=== PATIENT | female | born 1955 | race Caucasian/White ===

== ENCOUNTER → 2018-01-09 11:21 | Outpatient (CLI) | payer OTHER, SELFPAY ==
--- NOTE | 2018-01-09 | DI.MG.S_ITS ---
BILATERAL DIGITAL SCREENING MAMMOGRAM 3D/2D WITH CAD: 01/09/2018 CLINICAL: Routine screening. Comparison is made to exams dated: 10/26/2016 mammogram, 09/22/2015 mammogram, and 08/18/2014 mammogram - [facility]. The tissue of both breasts is heterogeneously dense. This may lower the sensitivity of mammography. Current study was also evaluated with a Computer Aided Detection (CAD) system. There is a biopsy clip in the right breast. There also are post operative findings in the left breast. No significant masses, calcifications, or other findings are seen in either breast. There has been no significant interval change. IMPRESSION: NEGATIVE There is no mammographic evidence of malignancy. A 1 year screening mammogram is recommended. This exam was interpreted at Station ID: [id number]. NOTE: For mammograms, a report in lay terms will be sent to the patient. Approximately 15% of breast malignancies will not be visualized mammographically. In the management of a palpable breast mass, a negative mammogram must not discourage biopsy of a clinically suspicious lesion. Electronically Signed By: Jennifer damian/george:01/09/2018 16:09:23 letter sent: Normal Exam ACR BI-RADS Category 1: Negative [id number]
== END ==
PROVIDERS: PCP Internal Medicine; Visit Provider Internal Medicine
DX: Z12.31 Encounter for screening mammogram for malignant neoplasm of breast (principal)
CPT/HCPCS: 77063; 77067

== ENCOUNTER → 2018-04-11 09:06 | Outpatient (CLI) | payer OTHER, SELFPAY ==
[2018-04-11 10:41] LABS: BUN Creatinine Ratio 28.3 (6-22); Blood Urea Nitrogen 17 mg/dL (7-17); Calcium 9.1 mg/dL (8.4-10.2); Carbon Dioxide 27 mmol/L (22-32); Chloride 103 mmol/L (98-107); Cholesterol 257 mg/dL (140-199); Estimated Glomerular Filt Rate > 60.0 mL/min (>60); Glucose 86 mg/dL (80-110); HDL Cholesterol 56 mg/dL (40-60); HEMOLYSIS 15 (0-50); LDL Cholesterol Calculated 190 mg/dL (<100); Potassium 4.1 mmol/L (3.4-5.1); Sodium 140 mmol/L (137-145); Triglycerides 57 mg/dL (35-150)
[2018-04-11 11:11] LABS: TSH w/ Reflex to FT4 1.62 uIU/mL (0.47-4.68)
== END ==
PROVIDERS: PCP Internal Medicine; Visit Provider Internal Medicine
DX: I10 Essential (primary) hypertension (principal); E78.00 Pure hypercholesterolemia, unspecified; R00.2 Palpitations
CPT/HCPCS: 36415; 80048; 80061; 84443

== ENCOUNTER 2018-04-11 12:20 | Emergency (ER) | payer OTHER, SELFPAY ==
[2018-04-11] VITALS (9 sets, daily range): BP systolic 137–174; BP diastolic 68–88; PULSE 70–95; RESP 11–19; TEMP 36.9–37.2; O2SAT 97–100
--- NOTE | 2018-04-11 12:38 | ED_ITS ---
HPI - Anxiety <TASIA Arshad - Last Filed: 04/11/18 22:07> General Chief Complaint: Syncope Stated Complaint: Anxiety Time Seen by Provider: 04/11/18 12:37 Source: patient Mode of arrival: EMS Limitations: no limitations History of Present Illness HPI narrative: 62-year-old female with history of hypertension and is a nonsmoker here for complaint of having dizziness and feeling of shortness of breath with heart pounding prior to arrival. She states she felt lightheaded during this episode. She also reported having tingling to bilateral hands during this period. She denies having any history of panic attacks or anxiety attacks. She denies having any chest pain. She denies having any headaches. No fevers no chills. Positive p.o. intake. She states her symptoms have resolved since this initial episode that lasted for approximately 10 and 15 min. She was seen by her primary care provider for concerned that she was having a regular heart rhythm. She is currently waiting Holter monitor. To ensure no arrhythmias. MD complaint: heart racing and shortness of breath Related Data Home Medications Medication Instructions Recorded Confirmed telmisartan [Micardis] 40 mg PO QPM #0 04/18/16 04/11/18 albuterol sulfate [Ventolin HFA] 1 puff INHALATION PRN PRN 04/11/18 04/11/18 beclomethasone dipropionate [Qvar 1 puff INHALATION BID 04/11/18 04/11/18 RediHaler] Previous Rx's Medication Instructions Recorded lorazepam 0.5 mg PO BID-TID PRN #10 tab 04/11/18 Allergies Allergy/AdvReac Type Severity Reaction Status Date / Time aspirin [ASPIRIN] Allergy Severe TROUBLE Unverified 04/11/18 15:36 BREATHING Review of Systems <TASIA Arshad - Last Filed: 04/11/18 22:07> Constitutional Reports as per HPI and Denies fatigue Eyes Denies change in vision, Denies eye discharge, Denies irritation and Denies loss of vision ENT Ears, Nose, Mouth, and Throat: Denies change in voice, Denies neck pain and Denies sore throat Cardiovascular Denies dyspnea and Denies dyspnea on exertion Comments: Feels like heart was racing or is missing beats Respiratory Denies cough, Denies dyspnea, Denies dyspnea on exertion and Denies wheezing Gastrointestinal Gastrointestinal: Denies abdominal pain, Denies change in bowel habits, Denies diarrhea, Denies nausea and Denies vomiting Genitourinary Denies hematuria, Denies flank pain, Denies urinary incontinence and Denies urinary urgency Musculoskeletal Denies neck pain Integumentary/Breasts Denies pruritus, Denies erythema, Denies rash and Denies wounds Neurologic Denies confusion and Denies loss of vision Psychiatric Denies anxiety, Denies confusion, Denies depression, Denies homicidal ideation and Denies suicidal ideation Endocrine Denies fatigue and Denies flushing Allergic/Immunologic Denies wheezing Exam <TASIA Arshad - Last Filed: 04/11/18 22:07> Initial Vital Signs Initial Vital Signs: Vital Signs Temperature 98.5 F 04/11/18 12:35 Pulse Rate 95 H 04/11/18 12:35 Respiratory Rate 19 04/11/18 12:35 Blood Pressure 137/68 04/11/18 12:35 Pulse Oximetry 98 04/11/18 12:35 Const General: cooperative and well developed Nutritional Appearance: well nourished Orientation: alert, awake, oriented x3 and not confused HENFL Mouth: oral mucosae normal and moist mucous membranes Eyes Conjunctivae: conjunctivae normal Sclera: sclerae normal Pupils: PERRL EOM: EOM intact bilaterally Resp Effort & Inspection: normal respiratory effort, able to speak in complete sentences, no respiratory distress and no use of accessory muscles Auscultation: clear to auscultation bilaterally, no rales, no rhonchi and no wheezes Cardio Rate: regular rate Rhythm: regular rhythm Heart Sounds: no click, no gallops, no murmurs and no rubs GI Inspection: non-distended Palpation: soft, no hepatosplenomegaly, No guarding, No pulsatile mass and No tender Auscultation: normal bowel sounds General: No CVA tenderness Skin General: no rashes or lesions noted, No jaundice and No petechiae Neuro General: alert, oriented x3, gait normal and no focal motor deficits Speech: speech normal <Leora Kemp DO - Last Filed: 04/12/18 07:34> Initial Vital Signs Initial Vital Signs: Vital Signs Temperature 98.5 F 04/11/18 12:35 Pulse Rate 95 H 04/11/18 12:35 Respiratory Rate 19 04/11/18 12:35 Blood Pressure 137/68 04/11/18 12:35 Pulse Oximetry 98 04/11/18 12:35 Course <TASIA Arshad - Last Filed: 04/11/18 22:07> Orders Ordered: Discontinued Medications Sodium Chloride (Normal Saline 0.9%) 1,000 mls @ 150 mls/hr IV CONT ALISON Last Infusion: 04/11/18 15:37 Dose: 0 mls/hr Admin: 04/11/18 14:28 Dose: 150 mls/hr Lorazepam (Ativan) 0.5 mg IV NOW ONE Stop: 04/11/18 13:54 Last Admin: 04/11/18 14:27 Dose: 0.5 mg Vital Signs - 8 hr 04/11/18 14:30 04/11/18 15:17 04/11/18 15:30 Pulse Rate 79 83 76 Respiratory Rate 12 12 13 Blood Pressure [Right Arm] 147/74 H 141/75 H 143/81 H Pulse Oximetry 97 100 99 04/11/18 16:00 Pulse Rate 73 Respiratory Rate 12 Blood Pressure [Right Arm] 143/81 H Pulse Oximetry 99 <Leora Kemp DO - Last Filed: 04/12/18 07:34> Orders Ordered: Discontinued Medications Sodium Chloride (Normal Saline 0.9%) 1,000 mls @ 150 mls/hr IV CONT ALISON Last Infusion: 04/11/18 15:37 Dose: 0 mls/hr Admin: 04/11/18 14:28 Dose: 150 mls/hr Lorazepam (Ativan) 0.5 mg IV NOW ONE Stop: 04/11/18 13:54 Last Admin: 04/11/18 14:27 Dose: 0.5 mg Vital Signs - 8 hr 04/11/18 14:30 04/11/18 15:17 04/11/18 15:30 Pulse Rate 79 83 76 Respiratory Rate 12 12 13 Blood Pressure [Right Arm] 147/74 H 141/75 H 143/81 H Pulse Oximetry 97 100 99 04/11/18 16:00 Pulse Rate 73 Respiratory Rate 12 Blood Pressure [Right Arm] 143/81 H Pulse Oximetry 99 MDM - Anxiety <TASIA Arshad - Last Filed: 04/11/18 22:07> Lab Data Result diagrams: 04/11/18 12:50 04/11/18 12:50 Lab Results 04/11/18 04/11/18 04/11/18 Range/Units 12:50 12:50 15:11 WBC 7.3 (4.5-11.0) X10^3/uL RBC 4.41 (4.0-5.2) X10^6/uL Hgb 14.1 (12.0-16.0) g/dL Hct 40.8 (36-46) % MCV 92.5 (80-100) fL MCH 31.9 (26-34) PG MCHC 34.5 (30-36) % RDW 13.0 (11.6-14.8) % Plt Count 307 (150-400) X10^3/uL Neut % (Auto) 62.3 (50-75) % Lymph % (Auto) 26.5 (25-40) % [place] % (Auto) 8.7 (3-14) % Eos % (Auto) 2.0 (2-4) % Baso % (Auto) 0.5 (0-2) % Neut # (Auto) 4600 (2621-4271) /uL Sodium 139 (137-145) mmol/L Potassium 3.5 (3.4-5.1) mmol/L Chloride 104 (98-107) mmol/L Carbon Dioxide 23 (22-32) mmol/L BUN 19 H (7-17) mg/dL Creatinine 0.60 (0.52-1.04) mg/dL Estimated GFR > 60.0 (>60) mL/min BUN/Creatinine Ratio 31.7 H (6-22) Glucose 112 H (80-110) mg/dL Calcium 9.8 (8.4-10.2) mg/dL Total Bilirubin 1.0 (0.2-1.3) mg/dL AST 29 (14-36) IU/L ALT 27 (9-52) IU/L Alkaline Phosphatase 68 (38-126) U/L Total Creatine Kinase 73 (30-135) U/L CK-MB (CK-2) TNP CK-MB (CK-2) Rel Index TNP Troponin I < 0.012 (0.01-0.034) ng/mL Total Protein 7.2 (6.3-8.2) g/dL Albumin 4.5 (3.5-5.0) g/dL Globulin 2.7 (1.7-4.1) g/dL Albumin/Globulin Ratio 1.7 (1.0-2.8) Lipase 89 (23-300) U/L Urine RBC None seen (0-5/HPF) Urine WBC None seen (0-5/HPF) Urine Bacteria None seen (None) Ur Culture Indicated? Cult not indicated Micro UA Comment Microscopic normal 04/11/18 Range/Units 15:51 WBC (4.5-11.0) X10^3/uL RBC (4.0-5.2) X10^6/uL Hgb (12.0-16.0) g/dL Hct (36-46) % MCV (80-100) fL MCH (26-34) PG MCHC (30-36) % RDW (11.6-14.8) % Plt Count (150-400) X10^3/uL Neut % (Auto) (50-75) % Lymph % (Auto) (25-40) % [place] % (Auto) (3-14) % Eos % (Auto) (2-4) % Baso % (Auto) (0-2) % Neut # (Auto) (7317-5864) /uL Sodium (137-145) mmol/L Potassium (3.4-5.1) mmol/L Chloride (98-107) mmol/L Carbon Dioxide (22-32) mmol/L BUN (7-17) mg/dL Creatinine (0.52-1.04) mg/dL Estimated GFR (>60) mL/min BUN/Creatinine Ratio (6-22) Glucose (80-110) mg/dL Calcium (8.4-10.2) mg/dL Total Bilirubin (0.2-1.3) mg/dL AST (14-36) IU/L ALT (9-52) IU/L Alkaline Phosphatase (38-126) U/L Total Creatine Kinase (30-135) U/L CK-MB (CK-2) CK-MB (CK-2) Rel Index Troponin I < 0.012 (0.01-0.034) ng/mL Total Protein (6.3-8.2) g/dL Albumin (3.5-5.0) g/dL Globulin (1.7-4.1) g/dL Albumin/Globulin Ratio (1.0-2.8) Lipase (23-300) U/L Urine RBC (0-5/HPF) Urine WBC (0-5/HPF) Urine Bacteria (None) Ur Culture Indicated? Micro UA Comment Urine Dip Bedside Urine Glucose Negative Bedside Urine Bilirubin - Negative Bedside Urine Ketone ++ 40 Urine Specific [place] 1.010 Bedside Urine Occult Blood - Negative Bedside Urine pH 6.0 Bedside Urine Protein - Negative Bedside Urine Urobilinogen - Negative Bedside Urine Nitrite - Negative Bedside Urine Leukocytes - Negative Esterase Imaging Data CT scan - head: Radiologist's impression: [address] [address] [address] Scan Report Signed Patient: Elizabeth Altamirano VMR#: [id number] : 8Acct:[id number] Age/Sex: 62 / FDate of Service: 04/11/18 Loc: ED Accession Number: [id number] Procedure: CT head/brain wo con Ordering Provider: Jose Scott PROCEDURE: CT HEAD/BRAIN WO CON INDICATIONS: Pre syncopal episode TECHNIQUE: Noncontrast 4.5 mm thick angled axial sections acquired from the foramen magnum to the vertex, with coronal and sagittal reformats. For radiation dose reduction, the following was used: automated exposure control, adjustment of mA and/or kV according to patient size. COMPARISON: [facility], , BRAIN WITHOUT CONTRAST, 12/09/2014, 8:49. FINDINGS: Image quality: Diagnostic. CSF spaces: Basal cisterns are patent. No extra-axial fluid collections. Ventricles are normal in size and shape. Brain: No midline shift. No intracranial masses or hemorrhage. Mendez-white matter interface is normal. Skull and face: Calvarium and visualized facial bones are intact, without suspicious lesions. Sinuses: Complete opacification of the ethmoid air cells and the frontal sinuses is present. There is prominent thinning of the bone along the cranial margin of the ethmoid air cells without rodríguez dehiscence evident. IMPRESSION: 1. No acute intracranial hemorrhage. 2. Prominent paranasal sinus disease. Bony thinning of the superior aspect of the ethmoid air cells is present without definitive dehiscence. If there is clinical concern for sinusitis extending into the cranial vault, please consider a dedicated sinus CT for better evaluation of the bone. Dictated by: Blake Castellon M.D. on 04/11/2018 at 13:19 Approved by: Blake Castellon M.D. on 04/11/2018 at 13:22 Chest x-ray: My impression: [address] [address] XRay Report Signed Patient: Elizabeth Altamirano R#: [id number] : 8Acct:[id number] Age/Sex: 62 / FDate of Service: 04/11/18 Loc: ED Accession Number: [id number] Procedure: XR chest 1V Ordering Provider: Jose Scott PROCEDURE: XR CHEST 1V INDICATIONS: Pre syncopal episode shortness of breath TECHNIQUE: One view of the chest was acquired. COMPARISON: None. FINDINGS: Surgical changes and devices: None. Lungs and pleura: No pleural effusions or pneumothorax. Lungs are clear. Mediastinum: Mediastinal contours appear normal. Heart size is normal. Bones and chest wall: No suspicious bony lesions. Overlying soft tissues appear unremarkable. IMPRESSION: Negative chest. No acute cardiopulmonary process is evident. Dictated by: Blake Castellon M.D. on 04/11/2018 at 13:22 Approved by: Blake Castellon M.D. on 04/11/2018 at 13:27 ECG Data Interpretation: EKG shows sinus rhythm with no ST elevation or depression. No ectopy. Ventricular rate is 74. Pr interval 148. QRS duration of 116. QTC is 387. MDM Narrative Medical decision making narrative: EKG was obtained was negative for any ST elevation or depression. No ectopy. No ectopic beats or ectopy is seen while on monitoring while she was in the emergency room. CBC and and Chem panel were obtained were unremarkable. Two sets of cardiac enzymes were obtained were negative. Chest x-ray was negative for any acute findings. CT of the head was also obtained and was also negative for any acute findings. Symptoms and presentation present as anxiety. She was given half a mg of Ativan while in the emergency room which relax the patient and made her feel better. Recommend that she continue with Holter monitoring as scheduled to rule out arrhythmias. Follow up with primary care provider later this week for re-evaluation. Small amount of Ativan as prescribed to help with any panic attacks. Patient is encouraged to use relaxation techniques such as breathing exercises to help with any anxiety. For any worsening symptoms return to the emergency room. <Leora Kemp, DO - Last Filed: 04/12/18 07:34> Lab Data Lab Results 04/11/18 04/11/18 04/11/18 Range/Units 12:50 12:50 15:11 WBC 7.3 (4.5-11.0) X10^3/uL RBC 4.41 (4.0-5.2) X10^6/uL Hgb 14.1 (12.0-16.0) g/dL Hct 40.8 (36-46) % MCV 92.5 (80-100) fL MCH 31.9 (26-34) PG MCHC 34.5 (30-36) % RDW 13.0 (11.6-14.8) % Plt Count 307 (150-400) X10^3/uL Neut % (Auto) 62.3 (50-75) % Lymph % (Auto) 26.5 (25-40) % [place] % (Auto) 8.7 (3-14) % Eos % (Auto) 2.0 (2-4) % Baso % (Auto) 0.5 (0-2) % Neut # (Auto) 4600 (6137-3351) /uL Sodium 139 (137-145) mmol/L Potassium 3.5 (3.4-5.1) mmol/L Chloride 104 (98-107) mmol/L Carbon Dioxide 23 (22-32) mmol/L BUN 19 H (7-17) mg/dL Creatinine 0.60 (0.52-1.04) mg/dL Estimated GFR > 60.0 (>60) mL/min BUN/Creatinine Ratio 31.7 H (6-22) Glucose 112 H (80-110) mg/dL Calcium 9.8 (8.4-10.2) mg/dL Total Bilirubin 1.0 (0.2-1.3) mg/dL AST 29 (14-36) IU/L ALT 27 (9-52) IU/L Alkaline Phosphatase 68 (38-126) U/L Total Creatine Kinase 73 (30-135) U/L CK-MB (CK-2) TNP CK-MB (CK-2) Rel Index TNP Troponin I < 0.012 (0.01-0.034) ng/mL Total Protein 7.2 (6.3-8.2) g/dL Albumin 4.5 (3.5-5.0) g/dL Globulin 2.7 (1.7-4.1) g/dL Albumin/Globulin Ratio 1.7 (1.0-2.8) Lipase 89 (23-300) U/L Urine RBC None seen (0-5/HPF) Urine WBC None seen (0-5/HPF) Urine Bacteria None seen (None) Ur Culture Indicated? Cult not indicated Micro UA Comment Microscopic normal 04/11/18 Range/Units 15:51 WBC (4.5-11.0) X10^3/uL RBC (4.0-5.2) X10^6/uL Hgb (12.0-16.0) g/dL Hct (36-46) % MCV (80-100) fL MCH (26-34) PG MCHC (30-36) % RDW (11.6-14.8) % Plt Count (150-400) X10^3/uL Neut % (Auto) (50-75) % Lymph % (Auto) (25-40) % [place] % (Auto) (3-14) % Eos % (Auto) (2-4) % Baso % (Auto) (0-2) % Neut # (Auto) (4015-4037) /uL Sodium (137-145) mmol/L Potassium (3.4-5.1) mmol/L Chloride (98-107) mmol/L Carbon Dioxide (22-32) mmol/L BUN (7-17) mg/dL Creatinine (0.52-1.04) mg/dL Estimated GFR (>60) mL/min BUN/Creatinine Ratio (6-22) Glucose (80-110) mg/dL Calcium (8.4-10.2) mg/dL Total Bilirubin (0.2-1.3) mg/dL AST (14-36) IU/L ALT (9-52) IU/L Alkaline Phosphatase (38-126) U/L Total Creatine Kinase (30-135) U/L CK-MB (CK-2) CK-MB (CK-2) Rel Index Troponin I < 0.012 (0.01-0.034) ng/mL Total Protein (6.3-8.2) g/dL Albumin (3.5-5.0) g/dL Globulin (1.7-4.1) g/dL Albumin/Globulin Ratio (1.0-2.8) Lipase (23-300) U/L Urine RBC (0-5/HPF) Urine WBC (0-5/HPF) Urine Bacteria (None) Ur Culture Indicated? Micro UA Comment Urine Dip Bedside Urine Glucose Negative Bedside Urine Bilirubin - Negative Bedside Urine Ketone ++ 40 Urine Specific [place] 1.010 Bedside Urine Occult Blood - Negative Bedside Urine pH 6.0 Bedside Urine Protein - Negative Bedside Urine Urobilinogen - Negative Bedside Urine Nitrite - Negative Bedside Urine Leukocytes - Negative Esterase ECG Data Attestation: I personally reviewed and interpreted this ECG as follows: Prior ECG tracings: available for review Interpretation: Normal sinus rhythm rate [address] changes no T-wave inversion Discharge Plan Departure Patient Disposition: Home Clinical Impression: Anxiety Discharge Date/Time: 04/11/18 17:36 Interventions: ED Discharge Assessment Last Done: 04/11/18 17:35 Instructions: DI for Anxiety -- Adult Activity Restrictions/Additional Instructions: Imaging today and laboratory results were unremarkable. EKG was unremarkable. No signs of irregular heartbeat or missed heart these are seen on EKG or rhythm strip today. Signs and symptoms presents as anxiety. Small amount of Ativan as prescribed for any anxiety attacks use as directed. No driving while on the Ativan. Follow up with your primary care provider next week for re-evaluation. Continue with a Holter monitor as already scheduled for further evaluation of a heart rate and rhythm. For any worsening symptoms return to the emergency room. Recommend relaxation techniques when feeling excision such as deep breathing exercises. Prescriptions: New lorazepam 0.5 mg tablet 0.5 mg PO BID-TID PRN (Reason: anxiety) Qty: 10 RF: 0 No Action telmisartan [Micardis] 40 MG tablet 40 mg PO QPM Qty: 0 RF: 0 albuterol sulfate [Ventolin HFA] 90 mcg/actuation Hfa Aerosol Inhaler 1 puff Inhalation PRN PRN (Reason: Shortness Of Breath) RF: 0 beclomethasone dipropionate [Qvar RediHaler] 80 mcg/actuation Hfa Aerosol Breath Activated 1 puff Inhalation BID RF: 0 Referrals: Norah Amato MD [Primary Care Provider] - <Leora Kemp DO - Last Filed: 04/12/18 07:34> Cosign ED Attending Cosignature Attestation: I was immediately available in the department for consultation. Documentation has been reviewed. I agree with assessment and plan.
--- NOTE | 2018-04-11 13:53 | DI.CT.S_ITS ---
PROCEDURE: CT HEAD/BRAIN WO CON INDICATIONS: Pre syncopal episode TECHNIQUE: Noncontrast 4.5 mm thick angled axial sections acquired from the foramen magnum to the vertex, with coronal and sagittal reformats. For radiation dose reduction, the following was used: automated exposure control, adjustment of mA and/or kV according to patient size. COMPARISON: [facility], MR, BRAIN WITHOUT CONTRAST, 12/09/2014, 8:49. FINDINGS: Image quality: Diagnostic. CSF spaces: Basal cisterns are patent. No extra-axial fluid collections. Ventricles are normal in size and shape. Brain: No midline shift. No intracranial masses or hemorrhage. Mendez-white matter interface is normal. Skull and face: Calvarium and visualized facial bones are intact, without suspicious lesions. Sinuses: Complete opacification of the ethmoid air cells and the frontal sinuses is present. There is prominent thinning of the bone along the cranial margin of the ethmoid air cells without rodríguez dehiscence evident. IMPRESSION: 1. No acute intracranial hemorrhage. 2. Prominent paranasal sinus disease. Bony thinning of the superior aspect of the ethmoid air cells is present without definitive dehiscence. If there is clinical concern for sinusitis extending into the cranial vault, please consider a dedicated sinus CT for better evaluation of the bone. Dictated by: Blake Castellon M.D. on 04/11/2018 at 13:19 Approved by: Blake Castellon M.D. on 04/11/2018 at 13:22
--- NOTE | 2018-04-11 13:53 | DI.RAD.S_ITS ---
PROCEDURE: XR CHEST 1V INDICATIONS: Pre syncopal episode shortness of breath TECHNIQUE: One view of the chest was acquired. COMPARISON: None. FINDINGS: Surgical changes and devices: None. Lungs and pleura: No pleural effusions or pneumothorax. Lungs are clear. Mediastinum: Mediastinal contours appear normal. Heart size is normal. Bones and chest wall: No suspicious bony lesions. Overlying soft tissues appear unremarkable. IMPRESSION: Negative chest. No acute cardiopulmonary process is evident. Dictated by: Blake Castellon M.D. on 04/11/2018 at 13:22 Approved by: Blake Castellon M.D. on 04/11/2018 at 13:27
[2018-04-11 14:05] LABS: Add Manual Diff / Slide Review NO; Basophils Percent Auto 0.5 % (0-2); Hematocrit 40.8 % (36-46); Hemoglobin 14.1 g/dL (12.0-16.0); Lymphocytes Percent Auto 26.5 % (25-40); Mean Corpuscular HGB Conc 34.5 % (30-36); Mean Corpuscular Hemoglobin 31.9 PG (26-34); Mean Corpuscular Volume 92.5 fL (80-100); Monocytes Percent Auto 8.7 % (3-14); Neutrophils Absolute Auto 4600 /uL (3000-5900); Neutrophils Percent Auto 62.3 % (50-75); Platelet Count 307 X10^3/uL (150-400); Red Blood Cell Count 4.41 X10^6/uL (4.0-5.2); White Blood Cell Count 7.3 X10^3/uL (4.5-11.0)
[2018-04-11 14:10] LABS: Alanine Aminotransferase 27 IU/L (9-52); Albumin 4.5 g/dL (3.5-5.0); Albumin Globulin Ratio 1.7 (1.0-2.8); Alkaline Phosphatase 68 U/L (38-126); Aspartate Aminotransferase 29 IU/L (14-36); BUN Creatinine Ratio 31.7 (6-22); Blood Urea Nitrogen 19 mg/dL (7-17); Calcium 9.8 mg/dL (8.4-10.2); Carbon Dioxide 23 mmol/L (22-32); Creatine Kinase 73 U/L (30-135); Estimated Glomerular Filt Rate > 60.0 mL/min (>60); Globulin 2.7 g/dL (1.7-4.1); Glucose 112 mg/dL (80-110); HEMOLYSIS < 15 (0-50); Lipase 89 U/L (23-300); Total Protein 7.2 g/dL (6.3-8.2)
[2018-04-11 14:23] LABS: Troponin I < 0.012 ng/mL (0.01-0.034)
[2018-04-11] MEDS: LORazepam 2 MG/ML SYRINGE 0.5 MG IV (14:27)
[2018-04-11] MEDS: SODIUM CHLORIDE 0.9% 1,000 ML 150 ML IV (14:28)
[2018-04-11 15:12] LABS: Bacteria Urine None Seen; RBC Urine None Seen (0-5/HPF); WBC Urine None Seen (0-5/HPF)
[2018-04-11 15:14] LABS: Chloride 104 mmol/L (98-107); Potassium 3.5 mmol/L (3.4-5.1); Sodium 139 mmol/L (137-145)
[2018-04-11 15:21] LABS: Culture Indicated Urine Cult Not Indicated; Urine Comments Microscopic Normal
--- NOTE | 2018-04-11 15:56 | PC.NURSE ---
silvia gave permission to bolus NS 0.9% iv.
[2018-04-11 16:57] LABS: Troponin I < 0.012 ng/mL (0.01-0.034)
== END 2018-04-11 17:36 | disposition home or self-care (01) ==
PROVIDERS: Emergency Provider Nurse Practitioner Family; PCP Internal Medicine
DX: F41.9 Anxiety disorder, unspecified (principal)
CPT/HCPCS: 36415; 36591; 70450; 71045; 80053; 81003; 81015; 82550; 83690; 84484; 85025; 93005; 96361; 96374; 99283; 99285; J2060

== ENCOUNTER → 2018-05-06 09:31 | Outpatient (CLI) | payer OTHER, SELFPAY ==
--- NOTE | 2018-05-06 | DI.ECHO.S_ITS ---
[facility] +---------+ : : [address] : [place] : : : : [id number] : : : : Phone: [phone]---------+ Echocardiogram Report + + :Name: JHONNY CROUCH V Study Date: 05/06/2018 Height: 63 in : :[facility] Exam Location: [facility] Weight: 140 lb : : Gender: Female BSA: 1.7 m2 : :: 1955 Age: 62 yrs BP: 125/80 mmHg: :Reason For Study: Arrhythmia, PVCs : :Ordering Physician: James : :Lm Performed By: Aleah Page : :Referring: JAMES ALICEA : + + Interpretation Summary The study quality was technically difficult. The left ventricle is normal in size, wall thickness, and systolic function without any focal wall motion abnormalities. The ejection fraction is estimated to be 55-60%. Diastolic parameters suggest probable normal left ventricular diastolic function and normal filling pressures. The right ventricle is normal in size and function. There is no Doppler evidence for an interatrial shunt. -Overall this is study shows normal biventricular function and no significant valvular abnormalities. -Aortic valve is not well visualized but Doppler does not suggest a hemodynamically significant valvulopathy. -No significant change compared to the prior echo. Procedure: A two-dimensional transthoracic echocardiogram with color flow and Doppler was performed. Comparison is made with the echocardiogram of 05/04/2011. The study quality was technically difficult. The patient was in normal sinus rhythm during the exam. Left Ventricle: The left ventricle is normal in size, wall thickness, and systolic function without any focal wall motion abnormalities. The ejection fraction is estimated to be 55-60%. Diastolic parameters suggest probable normal left ventricular diastolic function and normal filling pressures. Right Ventricle: The right ventricle is normal in size and function. Atria: The left atrial size is normal. Right atrial size is normal. There is no Doppler evidence for an interatrial shunt. Mitral Valve: The mitral valve is normal in structure and function. There is trace mitral regurgitation. Aortic Valve: The aortic valve is not well visualized. The aortic valve opens well. No aortic regurgitation is present. Tricuspid Valve: The tricuspid valve is normal in structure and function. There is a trace or physiologic amount of tricuspid regurgitation. Pulmonary artery pressures cannot be estimated because of the lack of a measurable TR jet velocity. Pulmonic Valve: The pulmonic valve is not well visualized. There is a trace or physiologic amount of pulmonic regurgitation. Great Vessels: The aortic root is normal size. The ascending aorta is normal in size. The aortic arch is normal in size. The pulmonary artery is not well visualized, but is probably normal size. The IVC is dilated (diameter is greater than 2.1 cm) yet it collapses greater than 50% with a sniff. This suggests a right atrial pressure of 8 mm Hg. Pericardium/ Pleura There is no pericardial effusion. There is no pleural effusion. MMode/2D Measurements & Calculations LVIDd: 4.8 cm LVOT diam: 2.0 cm LVIDs: 3.3 cm Ao root diam: 3.0 cm FS: 31.3 % asc Aorta Diam: 3.0 cm EPSS: 0.00 cm Ao Arch Diam (Prox Trans): 2.5 cm IVSd: 0.73 cm LVPWd: 0.74 cm LV argueta. diameter/BSA (cm/m^2): 2.9 LV sys. diameter/BSA (cm/m^2): 2.0 LA A2 area: 21.9 cm2 RA long axis: 5.6 cm LA A4 area: 18.6 cm2 RA area: 18.9 cm2 LA length (vol): 6.0 cm RA vol: 54.2 ml LA vol: 57.7 ml RA : 32.6 ml/m2 LA vol index: 34.7 ml/m2 IVC diam: 2.3 cm RVD1 (basal): 3.9 cm Doppler Measurements & Calculations Ao V2 max: 138.1 cm/sec LVOT Max Josr: 107.9 cm/sec Ao V2 mean: 98.9 cm/sec LV V1 max P.7 mmHg Ao max P.6 mmHg LV V1 VTI: 22.0 cm Ao mean P.2 mmHg GUADALUPE(I,D): 2.3 cm2 Ao V2 VTI: 29.1 cm GUADALUPE(V,D): 2.3 cm2 sev ratio: 0.76 GUADALUPE indexed to BSA (cm^2/m^2): 1.4 MV E max josr: 71.6 cm/sec PA V2 max: 84.7 cm/sec MV A max josr: 66.1 cm/sec PA V2 mean: 58.5 cm/sec MV E/A: 1.1 PA mean P.5 mmHg Med Peak E' Josr: 7.2 cm/sec PA Accel Time: 0.09 sec E/E' med: 9.9 Lat Peak E' Josr: 9.6 cm/sec E/E' lat: 7.5 E/e' average: 8.7 MV dec time: 0.21 sec MV P1/2t: 64.0 msec MV /2t max josr: 72.5 cm/sec MVA(2t): 3.4 cm2 Electronically signed by: Ahmet Toledo M.D. on Reading Physician:05/06/2018 01:20 PM
== END ==
PROVIDERS: PCP Internal Medicine; Visit Provider Internal Medicine
DX: I49.3 Ventricular premature depolarization (principal)
CPT/HCPCS: 93306

== ENCOUNTER → 2018-06-05 08:33 | Outpatient (CLI) | payer SELFPAY ==
--- NOTE | 2018-06-05 | DI.US.S_ITS ---
PROCEDURE: US PELVIC COMPLETE INDICATIONS: POST MENOPAUSAL BLEEDING TECHNIQUE: Real-time scanning was performed of the pelvic organs, with image documentation. Additional endovaginal scanning was necessary due to incomplete visualization of the adnexal and endometrial structures by transabdominal scanning. COMPARISON: None. FINDINGS: Transabdominal scanning: Limited scanning through the kidneys shows no hydronephrosis. No pathologic free abdominal or pelvic fluid. Endovaginal scanning: Uterus: Uterus is normal in size at 6.9 x 2.6 x 3.9 cm. The endometrium measures 3 mm in combined thickness and is ill-defined and only partially seen. Hypoechoic uterine lesions are seen, which are attributed to fibroids. They measure as follows: Right anterior uterus, subserosal, 1.5 x 1 x 1.2 cm Left posterior uterus, intramural, 1.2 x 0.7 x 1.1 cm Ovaries: The right ovary measures 1.5 x 1 x 1.2 cm. The left ovary measures 1.2 x 0.7 x 1.1 cm. The ovaries have a normal sonographic appearance. No adnexal masses are seen. IMPRESSION: The endometrial stripe is not thickened in this patient with a presenting history of postmenopausal bleeding. Small uterine fibroids are noted. Dictated by: Isra Santillan M.D. on 06/05/2018 at 11:39 Approved by: Isra Santillan M.D. on 06/05/2018 at 11:41
== END ==
PROVIDERS: PCP Internal Medicine; Visit Provider Internal Medicine
DX: N95.0 Postmenopausal bleeding (principal); D25.1 Intramural leiomyoma of uterus; D25.2 Subserosal leiomyoma of uterus
CPT/HCPCS: 76830; 76856

== ENCOUNTER → 2019-06-02 12:18 | Outpatient (CLI) | payer OTHER, SELFPAY ==
--- NOTE | 2019-06-02 | DI.MG.S_ITS ---
BILATERAL DIGITAL SCREENING MAMMOGRAM 3D/2D WITH CAD: 06/02/2019 CLINICAL: Routine screening. Comparison is made to exams dated: 01/09/2018 mammogram, 10/26/2016 mammogram, and 09/22/2015 mammogram - Loc[facility]. The tissue of both breasts is heterogeneously dense. This may lower the sensitivity of mammography. Current study was also evaluated with a Computer Aided Detection (CAD) system. There is a biopsy clip in the right breast. There also are benign post operative findings in the left breast. No significant masses, calcifications, or other findings are seen in either breast. There has been no significant interval change. IMPRESSION: There is no mammographic evidence of malignancy. A 1 year screening mammogram is recommended. This exam was interpreted at Station ID: [id number]. NOTE: For mammograms, a report in lay terms will be sent to the patient. Approximately 15% of breast malignancies will not be visualized mammographically. In the management of a palpable breast mass, a negative mammogram must not discourage biopsy of a clinically suspicious lesion. Electronically Signed By: Cooper day/george:06/02/2019 19:14:27 letter sent: Normal Exam ACR BI-RADS Category 2: Benign Finding(s) 3342F
== END ==
PROVIDERS: PCP Internal Medicine; Visit Provider Internal Medicine
DX: Z12.31 Encounter for screening mammogram for malignant neoplasm of breast (principal)
CPT/HCPCS: 77063; 77067

== ENCOUNTER → 2020-02-25 15:48 | Outpatient (ROUT) | payer OTHER, SELFPAY ==
[2020-02-25 16:37] LABS: Alanine Aminotransferase 20 IU/L (<35); Albumin Globulin Ratio 1.3 (1.0-2.8); Alkaline Phosphatase 62 U/L (38-126); Aspartate Aminotransferase 25 IU/L (14-36); BUN Creatinine Ratio 18.2 (6-22); Bilirubin Total 0.7 mg/dL (0.2-1.3); Blood Urea Nitrogen 10 mg/dL (7-17); Calcium 9.2 mg/dL (8.4-10.2); Carbon Dioxide 33 mmol/L (22-32); Chloride 107 mmol/L (98-107); Cholesterol 295 mg/dL (140-199); Estimated Glomerular Filt Rate > 60.0 mL/min (>60); Glucose 91 mg/dL (80-110); HDL Cholesterol 74 mg/dL (40-60); HEMOLYSIS < 15 (0-50); LDL Cholesterol Calculated 202 mg/dL (<100); Potassium 4.4 mmol/L (3.4-5.1); Sodium 141 mmol/L (137-145); Triglycerides 94 mg/dL (35-150)
== END ==
PROVIDERS: Visit Provider Internal Medicine
DX: I10 Essential (primary) hypertension (principal); E78.5 Hyperlipidemia, unspecified
CPT/HCPCS: 80053; 80061

== ENCOUNTER → 2020-08-10 15:42 | Outpatient (ROUT) | payer OTHER, SELFPAY ==
[2020-08-10 15:49] LABS: Add Manual Diff / Slide Review NO; Basophils Absolute Auto 0 /uL (0-100); Basophils Percent Auto 0.6 % (0-2); Eosinophils Absolute Auto 100 /uL (0-450); Eosinophils Percent Auto 2.1 % (2-4); Hematocrit 41.6 % (36-46); Hemoglobin 13.9 g/dL (12.0-16.0); Lymphocytes Absolute Auto 1700 /uL (1100-4500); Mean Corpuscular HGB Conc 33.4 % (30-36); Mean Corpuscular Hemoglobin 31.7 PG (26-34); Mean Corpuscular Volume 94.9 fL (80-100); Monocytes Absolute Auto 400 /uL (0-900); Monocytes Percent Auto 9.3 % (3-14); Neutrophils Absolute Auto 2600 /uL (1500-7000); Platelet Count 351 X10^3/uL (150-400); Red Blood Cell Count 4.38 X10^6/uL (4.0-5.2); Red Cell Distribution Width 12.9 % (11.6-14.8); White Blood Cell Count 4.8 X10^3/uL (4.5-11.0)
[2020-08-10 16:02] LABS: Alanine Aminotransferase 19 IU/L (<35); Albumin 4.5 g/dL (3.5-5.0); Albumin Globulin Ratio 1.7 (1.0-2.8); Alkaline Phosphatase 61 U/L (38-126); Aspartate Aminotransferase 23 IU/L (14-36); BUN Creatinine Ratio 20.8 (6-22); Bilirubin Total 0.8 mg/dL (0.2-1.3); Blood Urea Nitrogen 11 mg/dL (7-17); Calcium 9.8 mg/dL (8.4-10.2); Carbon Dioxide 29 mmol/L (22-32); Chloride 102 mmol/L (98-107); Cholesterol 258 mg/dL (140-199); Estimated Glomerular Filt Rate > 60.0 mL/min (>60); Globulin 2.7 g/dL (1.7-4.1); Glucose 98 mg/dL (80-110); HDL Cholesterol 54 mg/dL (40-60); HEMOLYSIS < 15 (0-50); LDL Cholesterol Calculated 183 mg/dL (<100); Potassium 4.4 mmol/L (3.4-5.1); Sodium 138 mmol/L (137-145); Total Protein 7.2 g/dL (6.3-8.2); Triglycerides 105 mg/dL (35-150)
[2020-08-10 16:49] LABS: Vitamin B12 979 pg/mL (239-931)
[2020-08-10 18:09] LABS: TSH w/ Reflex to FT4 2.01 uIU/mL (0.47-4.68)
== END ==
PROVIDERS: Visit Provider Internal Medicine
DX: I10 Essential (primary) hypertension (principal); E78.00 Pure hypercholesterolemia, unspecified; R53.1 Weakness
CPT/HCPCS: 80053; 80061; 82607; 84443; 85025

== ENCOUNTER → 2020-10-25 10:01 | Outpatient (CLI) | payer OTHER, SELFPAY ==
--- NOTE | 2020-10-25 | DI.MG.S_ITS ---
BILATERAL DIGITAL SCREENING MAMMOGRAM 3D/2D WITH CAD: 10/25/2020 CLINICAL: Routine screening. Comparison is made to exams dated: 06/02/2019 mammogram, 01/09/2018 mammogram, and 10/26/2016 mammogram - [facility]. The tissue of both breasts is heterogeneously dense. This may lower the sensitivity of mammography. Current study was also evaluated with a Computer Aided Detection (CAD) system. There is a biopsy clip in the right breast. There also are benign post operative findings in the left breast. No significant masses, calcifications, or other findings are seen in either breast. There has been no significant interval change. IMPRESSION: BENIGN There is no mammographic evidence of malignancy. A 1 year screening mammogram is recommended. This exam was interpreted at Station ID: [id number]. NOTE: For mammograms, a report in lay terms will be sent to the patient. Approximately 15% of breast malignancies will not be visualized mammographically. In the management of a palpable breast mass, a negative mammogram must not discourage biopsy of a clinically suspicious lesion. Electronically Signed By: Ted madrid/george:10/25/2020 14:30:27 letter sent: Normal Exam ACR BI-RADS Category 2: Benign Finding(s) 3342F
== END ==
PROVIDERS: PCP Internal Medicine; Referring Provider Internal Medicine; Visit Provider Internal Medicine
DX: Z12.31 Encounter for screening mammogram for malignant neoplasm of breast (principal)
CPT/HCPCS: 77063; 77067

== ENCOUNTER → 2023-04-08 08:16 | Outpatient (CLI) | payer OTHER, SELFPAY ==
--- NOTE | 2023-04-08 | DI.MG.S_ITS ---
BILATERAL DIGITAL SCREENING MAMMOGRAM 3D/2D WITH CAD: 04/08/2023 CLINICAL: Routine screening. Comparison is made to exams dated: 01/04/2022 mammogram - [facility], 10/25/2020 mammogram, and 06/02/2019 mammogram - [facility]. There are scattered areas of fibroglandular density in both breasts (category b / 25%-50% glandular tissue). Current study was also evaluated with a Computer Aided Detection (CAD) system. There is a biopsy clip in the right breast. There also are benign post operative findings in the left breast. No significant masses, calcifications, or other findings are seen in either breast. IMPRESSION: BENIGN There is no mammographic evidence of malignancy. A 1 year screening mammogram is recommended. Based on the Tyrer Cuzick model (a risk assessment model) the patient's lifetime risk is 4.9% and her 10 year risk is 2.3%. According to the ACR, ACS, and NCCN guidelines, an annual breast MRI exam along with mammogram is recommended if the patient's lifetime risk is 20% or greater. This exam was interpreted at Station ID: [id number]. NOTE: For mammograms, a report in lay terms will be sent to the patient. Approximately 15% of breast malignancies will not be visualized mammographically. In the management of a palpable breast mass, a negative mammogram must not discourage biopsy of a clinically suspicious lesion. Electronically Signed By: Viv Ventura M.D., PH.D mike/george:04/08/2023 19:16:31 letter sent: Normal Exam ACR BI-RADS Category 2: Benign Finding(s) 3342F
== END ==
PROVIDERS: PCP Internal Medicine; Referring Provider Internal Medicine; Visit Provider Internal Medicine
DX: Z12.31 Encounter for screening mammogram for malignant neoplasm of breast (principal)
CPT/HCPCS: 77063; 77067

== ENCOUNTER → 2023-06-27 08:39 | Outpatient (CLI) | payer OTHER, SELFPAY ==
--- NOTE | 2023-06-27 08:42 | DI.US.S_ITS ---
PROCEDURE: US SOFT TISSUE HEAD AND NECK INDICATIONS: Localized swelling, mass and lump, neck TECHNIQUE: Real-time scanning was performed of the neck region of interest, with image documentation. COMPARISON: None. FINDINGS: Sonographic images of the left neck demonstrate a circumscribed smoothly marginated subcutaneous mass measuring 3. 8 x 0.8 x 3.8 cm. No increased vascularity. IMPRESSION: Relative isoechoic subcutaneous mass most suggestive of lipoma. Dictated by: Shi Claros M.D. on 06/27/2023 at 17:02 Approved by: Shi Claros M.D. on 06/27/2023 at 17:03
== END ==
PROVIDERS: PCP Internal Medicine; Referring Provider Physician Assistant; Visit Provider Physician Assistant
DX: R22.1 Localized swelling, mass and lump, neck (principal); Z86.018 Personal history of other benign neoplasm
CPT/HCPCS: 76536

== ENCOUNTER 2023-07-23 10:39 | Day surgery (SDC) | payer OTHER, SELFPAY ==
--- NOTE | 2023-07-23 | PATH_ITS ---
[facility] Accession Number: [id number] No. of containers..01 Tissue . 01 Material submitted: . neck - NECK . 01 Clinical history: . LIPOMA . 01 Diagnosis: NECK, EXCISION: Mature adipose tissue, consistent with lipoma. MRV 07/26/2023 1329 Local . 01 Electronically signed: . Sumaya Ramirez MD, Dermatopathologist NPI- [id number] . 01 Gross description: . The specimen is received in formalin labeled with the patient's name, , and neck lipoma, and consists of a yellow, lobulated, soft tissue fragment measuring 3.8 x 3.4 x 1.0 cm with an attached, unoriented ellipse of skin measuring 2.7 x 0.5 cm. The margin is inked blue, and sectioning reveals a yellow, lobulated, unremarkable cut surface. Forestry Biology Specialist sections are submitted in cassette A1. ([id number]) /MRV 07/25/2023 1335 Local . 01 Pathologist provided ICD-10: D17.9 . 01 CPT . 716353 Specimen Comment: A courtesy copy of this report has been sent to [phone] Performed at: [facility] [address] [place] [address], [place], [place] [id number] MD Ted Black MD Phone: [phone]
[2023-07-23 11:06] VITALS: BP 170/95; PULSE 87; RESP 16; TEMP 36.2; O2SAT 98; BMI 26.2
[2023-07-23] MEDS: LACTATED RINGERS 1,000 ML 42 ML IV (11:14)
--- NOTE | 2023-07-23 13:16 | PM.PREOP ---
Pre-operative Note COVID-19 COVID-19 status: Not tested Interval Note History & Physical reviewed/Exam performed by Physician: Yes Changes to H&P: No ASA Class (for procedural sedation): II
--- NOTE | 2023-07-23 14:06 | SUR.OPER ---
Lateral on a ward bag, head on pillow, gel axillary roll in place, bottom leg bent with gel pad under knee to foot, upper leg straight and supported with pillows. Upper arm supported by pillows and secured over bottom arm to padded arm board. Safety belt at hip, tape over blanket lower legs.
[2023-07-23] MEDS: BUPIVACAINE 0.5% (PF) 30 ML, EPINEPHrine 0.15 MG INJ (14:31)
[2023-07-23 14:41] VITALS: BP 148/81; PULSE 107; RESP 14; TEMP 36.5; O2SAT 96
--- NOTE | 2023-07-23 14:41 | PM.OP.1 ---
Operative Date/Time/Diagnoses Date of procedure: 07/23/23 Time of procedure: 14:42 Pre-op diagnosis: Left neck lipoma Post-op diagnosis: same Procedure & Clinicians Procedure: Excisional biopsy of left neck lipoma Same procedure as scheduled: Yes Surgeon: Matthias Roberts Anesthesia Type: General Operative Notes Procedure in detail: The patient is a 67-year-old woman who has a left neck lipoma. She had undergone a prior attempted excisional biopsy in an office setting but the mass remained. She was consented for excisional biopsy in the operating room. The patient was brought to the operating room and general LMA anesthesia was induced. She was then positioned in right lateral decubitus position with the left side up. The left neck was prepped and draped in the usual fashion and a time-out was performed. A 4 cm elliptical incision was made to excise the prior scar in the direction of the skin folds which was roughly inferior-medial to superolateral. Upon dissection through the subcutaneous adipose tissue it became obvious that the prior scar was more posterior than the actual lipoma itself. The lipoma was dissected off of the trapezius fascia. Additional local was injected into the deep tissue. The lipoma measured about 3 cm in diameter. The lipoma was passed off the field and sent in formalin. The wound was then closed in layers using multiple interrupted 3-0 Vicryl dermal sutures and a running 4-0 Monocryl subcuticular stitch. Steri-Strips were applied. EBL: 5 mL Specimen: Neck lipoma Post-operative Condition: stable Disposition: PACU
[2023-07-23 14:48] VITALS: BP 141/85; PULSE 106; RESP 14; O2SAT 96
[2023-07-23 14:52] VITALS: BP 141/83; PULSE 97; RESP 12; TEMP 36.4; O2SAT 94
[2023-07-23 14:57] VITALS: BP 156/82; PULSE 97; RESP 12; O2SAT 94
--- NOTE | 2023-07-25 12:29 | P.PN_ITS ---
Subjective Subjective Interval history: Contacted pt by phone today because of report of perioperative lip injury. Pt had excision of L neck lipoma 07/23/23 and woke up with R lower lip injury. She says she was told in PACU that she must have bitten her lip. She does not believe that was the cause. Rather, she states it was more likely related to the breathing tube she had during surgery that wasn't checked. I explained that intraop, the anesthesia provider would not have been able to check without interfering with the surgery. Pt reports that her lip injury remains very painful today, POD #2, whereas she has no pain at all from her surgical site. She has been using cold packs and NSAIDs, which I encouraged her to continue. Pt's main concern seemed to be wanting us to know about the injury so injuries to future patients could be avoided. I apologized for her injury and told her I would let her anesthesia provider know so we could be more careful. I asked if there was anything else I could do for her, including having her anesthesia provider contact her directly. Pt indicated she was satisfied with my phone call to her. Exam Vital Signs (past 8 hours): Oxygen Delivery Method Room Air [facility] Medical History (Updated 07/03/23 @ 09:37 by Leni Liang RN) Insomnia Hyperlipemia Asthma Anxiety Social History household members: spouse Smoking Status: Never smoker
== END 2023-07-23 15:30 | disposition home or self-care (01) ==
PROVIDERS: PCP Internal Medicine; Referring Provider Surgery; Visit Provider Surgery
PROC: (CPT 21552; principal; 2023-07-23 12:15)
DX: D17.0 Benign lipomatous neoplasm of skin and subcutaneous tissue of head, face and neck (principal)
CPT/HCPCS: 21552; J0171; J1100; J2250; J2405; J2704; J3010

== ENCOUNTER → 2024-06-04 08:06 | Outpatient (CLI) | payer MEDICARE, SELFPAY ==
--- NOTE | 2024-06-04 08:08 | DI.MG.S_ITS ---
BILATERAL DIGITAL SCREENING MAMMOGRAM 3D/2D WITH CAD: 06/04/2024 CLINICAL: Routine screening. Comparison is made to exams dated: 04/08/2023 mammogram - [facility], 01/04/2022 mammogram - [facility], and 10/25/2020 mammogram - [facility]. There are scattered areas of fibroglandular density (category b / 25%-50% glandular tissue). Current study was also evaluated with a Computer Aided Detection (CAD) system. There is a biopsy clip in the right breast. There also are benign post operative findings in the left breast. No significant masses, calcifications, or other findings are seen in either breast. There has been no significant interval change. IMPRESSION: BENIGN There is no mammographic evidence of malignancy. A 1 year screening mammogram is recommended. Based on the Tyrer Cuzick model (a risk assessment model) the patient's lifetime risk is 4.7% and her 10 year risk is 2.3%. According to the ACR, ACS, and NCCN guidelines, an annual breast MRI exam along with mammogram is recommended if the patient's lifetime risk is 20% or greater. This exam was interpreted at Station ID: [id number]. NOTE: For mammograms, a report in lay terms will be sent to the patient. Approximately 15% of breast malignancies will not be visualized mammographically. In the management of a palpable breast mass, a negative mammogram must not discourage biopsy of a clinically suspicious lesion. Electronically Signed By: Cooper day/george:06/04/2024 18:07:47 letter sent: Normal Exam ACR BI-RADS Category 2: Benign
== END ==
PROVIDERS: PCP Internal Medicine; Referring Provider Internal Medicine; Visit Provider Internal Medicine
DX: Z12.31 Encounter for screening mammogram for malignant neoplasm of breast (principal)
CPT/HCPCS: 77063; 77067

== ENCOUNTER → 2025-03-09 09:31 | Outpatient (CLI) | payer MEDICARE, SELFPAY ==
--- NOTE | 2025-03-09 09:32 | DI.RAD.S_ITS ---
PROCEDURE: XR DEXA AXIAL SKELETON INDICATIONS: OSTEOPOROSIS SCREENING COMPARISON: None. FINDINGS: Lumbar Spine: Bone mineral density 0.695 g/cm2, T score -3.3. Left Femoral Neck: Bone mineral density 0.720 g/cm2, T score -1.2. Left Hip: Bone mineral density is 0.823 g/cm2, T score -1.0. Fracture Risk Calculation (when applicable): FRAX score not reported due to T-score less than or equal to -2.5. (T score greater or equal to -1.0 to: NORMAL) (T score from -1.1 to -2.4: OSTEOPENIA) (T score less than or equal to -2.5: OSTEOPOROSIS) IMPRESSION: By WHO criteria, patient has osteoporosis. Follow-up guidelines as follows: Osteoporosis: Consider a repeat DEXA and Vertebral Fracture Assessment (VFA) exam in 2 years or sooner if medically necessary, to reassess this patient's status. Osteopenia: Consider a repeat DEXA in 2-3 years to reassess this patient's status, or if there is a new clinical indication. Normal: Consider a repeat DEXA in 5 years or sooner, or if there is a new clinical indication. All treatment decisions require clinical judgment and consideration of individual patient factors, including patient preferences, comorbidities, previous drug use, risk factors not captured in the FRAX model (e.g., frailty, falls, vitamin D deficiency, increased bone turnover, interval significant decline in bone density ) and possible under- or over-estimation of fracture risk by FRAX. In addition, the NOF Guide recommends that FDA-approved medical therapies be considered in postmenopausal women and men age >= 50 years with a: * Hip or vertebral (clinical or morphometric) fracture * T-score of <=-2.5 at the spine or hip * Ten-year fracture probability by FRAX of >= 3% for hip fracture or >=20% for major osteoporotic fracture. Approved by: Dre Caballero M.D. on 03/09/2025 at 20:23
== END ==
LOC: RAD 09:31
PROVIDERS: PCP Internal Medicine; Referring Provider Family Medicine; Visit Provider Family Medicine
DX: M81.0 Age-related osteoporosis without current pathological fracture (principal); Z78.0 Asymptomatic menopausal state
CPT/HCPCS: 77080